=== PATIENT | female | born 1980 | race Caucasian/White ===

== ENCOUNTER → 2024-09-07 | Outpatient (CLI) | payer MEDICARE, MEDICAID, SELFPAY ==
--- NOTE | 2024-09-07 09:30 | XR_ITS ---
Examination: Breast ultrasound complete, bilateral Date and time of exam: September 07, 2024 1029 hours INDICATIONS: Bilateral breast pain months, family history breast cancer, mother Technique: Real-time grayscale ultrasonographic imaging bilateral breasts, including all 4 quadrants as well as nipple retroareolar and axillary regions. Findings: Sonographic images right breast Multiple benign cysts 6:00 nodule lobular margins 10 x 8 mm 9:00 nodule indistinct margins 25 x 15 x 11 mm Sonographic images left breast Benign cyst No suspicious solid nodule IMPRESSION: BI-RADS Category 4: Suspicious for malignancy Suspicious nodule 9:00 position right breast, biopsy is needed to exclude breast carcinoma, this nodule is amenable to ultrasound-guided breast biopsy for diagnosis Also recommend diagnostic mammography follow-up
--- NOTE | 2024-09-07 10:45 | XR_ITS ---
Examination: Diagnostic digital mammography, bilateral Computer aided detection 3-D breast Tomosynthesis, bilateral Date and time of exam: September 07, 2024 1105 hours Compared to mammograms dating to July 24, 2018 Technique: Nonmagnified MLO, CC views of the breasts to been obtained, reconstructed from 3-D Tomosynthesis images. R2 computer aided detection program utilized for evaluation of suspicious masses and/or abnormal calcifications. 3-D Tomosynthesis images obtained. Findings: The breasts are heterogeneously dense, which may obscure small masses Benign calcifications Breast biopsy marker upper right breast However, please see the right breast sonogram report today indicating BI-RADS 4 suspicious nodule 9:00 position right breast Impression: BI-RADS Category 4: Suspicious for malignancy Please see the right breast sonogram report today indicating BI-RADS 4 suspicious nodule 9:00 position right breast, biopsy needed to exclude breast carcinoma, under ultrasound guidance.
== END | disposition home or self-care (01) ==
PROVIDERS: Referring Provider Physician Assistant; Visit Provider Physician Assistant
DX: R92.343 Mammographic extreme density, bilateral breasts (principal); N63.15 Unspecified lump in the right breast, overlapping quadrants
CPT/HCPCS: 76641; 77062; 77066; G0279

== ENCOUNTER → 2024-12-17 | Outpatient (CLI) | payer MEDICARE, MEDICAID, SELFPAY ==
[2024-12-14 11:21] LABS: Basophils # (Auto) 0.0 Thou/mm3 (0.0-0.2); Basophils % (Auto) 0 % (0-2.5); Eosinophils # (Auto) 0.3 Thou/mm3 (0.0-0.5); Eosinophils % (Auto) 3 % (0-10); Hematocrit 38.7 % (36.0-46.0); Hemoglobin 13.0 g/dL (12.0-16.0); Immature Granulocytes Auto 0.03 Thou/mm3 (0.00-0.00); Lymphocytes # (Auto) 2.5 Thou/mm3 (1.0-4.8); Lymphocytes % (Auto) 28 % (10-50); Mean Corpuscular HGB Conc 33.6 g/dl (31.0-37.0); Mean Corpuscular Hemoglobin 30.7 pg (25.0-35.0); Mean Corpuscular Volume 91 fL (80-100); Monocytes # (Auto) 0.4 Thou/mm3 (0.0-0.8); Monocytes % (Auto) 4 % (0-12); Neutrophils # (Auto) 5.9 Thou/mm3 (1.8-7.7); Neutrophils % (Auto) 64 % (37-80); Nucleated Red Blood Cell # 0.00 Thou/mm3 (0.00-0.00); Nucleated Red Blood Cell % 0 /100 WBC (0); Platelet Count 348 Thou/mm3 (140-440); RDW Standard Deviation 43.8 fL (36.4-46.3); Red Blood Count 4.24 Miln/mm3 (4.00-5.20); White Blood Count 9.1 Thou/mm3 (3.6-11.0)
[2024-12-14 11:26] LABS: HCG,Qualitative Serum Negative
[2024-12-14 11:30] LABS: INR 0.9 (0.9-1.3); Partial Thromboplastin Time 29.3 Seconds (22.0-36.0); Prothrombin Time 10.3 Seconds (9.0-12.2)
--- NOTE | 2024-12-17 09:30 | XR_ITS ---
Examinations: Ultrasound-guided percutaneous breast biopsy, right breast 9:00 nodule Right breast sonography limited INDICATIONS: Right breast sonogram September 08, 2023 BI-RADS 4 suspicious nodule 9:00 position right breast. Exam date and time: December 17, 2024, 0936 hours. Informed consent provided. Technique: A timeout was completed verifying correct patient, procedure, site, positioning, and special equipment if applicable Informed consent provided. The patient was placed in a supine position for the breast biopsy. Sonographic images of the breast were performed for localization of the suspicious nodule The patient's breast was prepped and draped in sterile fashion. Maximum sterile barrier technique, hand hygiene, ultrasound sterile technique 1% lidocaine was used to anesthetize the skin and breast adjacent to the suspicious nodule. Utilizing ultrasonographic guidance, 8 core biopsies were obtained of the suspicious nodule utilizing an 18-gauge BioPince needle. The specimens appears satisfactory. US guided breast biopsy marker placement. Estimated blood loss 3 cc. The patient tolerated the procedure well and there were no complications. Impression: Successful ultrasound-guided percutaneous breast biopsy, right breast 9:00 nodule. Ultrasound guided breast biopsy marker placement.
== END | disposition home or self-care (01) ==
LOC: SDIM 08:49
PROVIDERS: Radiology Diagnostic Radiology; PCP Physician Assistant; Referring Provider Physician Assistant; Visit Provider Physician Assistant
DX: D24.1 Benign neoplasm of right breast (principal); N60.11 Diffuse cystic mastopathy of right breast; Z01.812 Encounter for preprocedural laboratory examination
CPT/HCPCS: 19083; 36415; 84703; 85025; 85610; 85730; A4648

== ENCOUNTER 2025-01-30 12:39 | Emergency (ER) | payer MEDICARE, MEDICAID, SELFPAY ==
[2025-01-30 12:40] VITALS: BMI 47.1
--- NOTE | 2025-01-30 13:22 | XR_ITS ---
Examination: CT brain head without contrast. 2-D sagittal coronal reconstructions Date and time of exam: January 30, 2025, 1418 hours INDICATIONS: Onset headache dizziness beginning 1 week ago CTDI: vol (mGy): 50.4 DLP: (mGycm): 1030 Technique: Multiple CT axial sections of the brain have been obtained, 5 mm slice thickness. Contrast has not been administered. 2-D sagittal, coronal reconstructions have been obtained Low dose protocols were performed. One or more of the following dose reduction techniques were used; automated exposure control, adjustment of the mA and/or KV according to patient size, use of iterative reconstruction technique. Findings: No significant ventricular enlargement. Intra-axial or extra-axial hemorrhage density is not seen. No mass effect or midline shift Basal cisterns are not remarkable. Fourth ventricle is midline. Cranial vault intact. Impression: Negative for acute hemorrhage, mass effect or midline shift Advise clinical correlation and follow-up accordingly
[2025-01-30 13:23] VITALS: BP 168/105; PULSE 82; RESP 20; TEMP 36.8; O2SAT 97
--- NOTE | 2025-01-30 13:23 | XR_ITS ---
EXAMINATION: PA lateral chest 2 views TECHNIQUE: Upright PA lateral chest 2 views Date and time: January 30, 2025, 1421 hours, comparison December 28, 2017 INDICATION: Chest pain today. FINDINGS: Normal heart size No pneumonia or pulmonary edema Osseous structures are intact IMPRESSION: No active disease
--- NOTE | 2025-01-30 13:23 | EKG_ITS ---
[facility] Test Date: 2025-01-30 Pat Name: MARICHUY FERMIN Department: Room: - Gender: Female [employer]: : 1980 Requested By: Landen Aquino (CIPRIANO) Order Number: [id number] Reading MD: Landen Aquino (SAMPLE DYE MIXER) Measurements Intervals Leary Rate: 91 P: 35 MN: 149 QRS: 26 QRSD: 80 T: 40 QT: 354 QTc: 436 Interpretive Statements SINUS RHYTHM LOW QRS VOLTAGE IN PRECORDIAL LEADS [QRS DEFLECTION < 1.0 mV IN CHEST LEADS] No previous ECG available for comparison /store/S0/[id number].pdf
--- NOTE | 2025-01-30 13:23 | PD.EDRME ---
Rapid Medical Screening Exam RME Arrival date/time: 01/30/25 12:39 44-year-old female presents to the emergency department today for complaints of headache and chest pain today Chief Complaint: Chest Pain Time Seen by Provider: 01/30/25 13:15 Vital signs reviewed by provider: Yes Exam: On exam clinically patient well-appearing does not appear ill or toxic no acute distress Clinical Impression: Lab work, imaging, EKG obtained
[2025-01-30 13:47] LABS: Basophils # (Auto) 0.0 Thou/mm3 (0.0-0.2); Basophils % (Auto) 0 % (0-2.5); Eosinophils # (Auto) 0.2 Thou/mm3 (0.0-0.5); Eosinophils % (Auto) 2 % (0-10); Hematocrit 33.7 % (36.0-46.0); Hemoglobin 11.4 g/dL (12.0-16.0); Immature Granulocytes Auto 0.01 Thou/mm3 (0.00-0.00); Lymphocytes # (Auto) 2.1 Thou/mm3 (1.0-4.8); Lymphocytes % (Auto) 29 % (10-50); Mean Corpuscular HGB Conc 33.8 g/dl (31.0-37.0); Mean Corpuscular Hemoglobin 29.8 pg (25.0-35.0); Mean Corpuscular Volume 88 fL (80-100); Monocytes # (Auto) 0.3 Thou/mm3 (0.0-0.8); Monocytes % (Auto) 5 % (0-12); Neutrophils # (Auto) 4.5 Thou/mm3 (1.8-7.7); Neutrophils % (Auto) 63 % (37-80); Nucleated Red Blood Cell # 0.00 Thou/mm3 (0.00-0.00); Nucleated Red Blood Cell % 0 /100 WBC (0); Platelet Count 229 Thou/mm3 (140-440); RDW Standard Deviation 42.1 fL (36.4-46.3); Red Blood Count 3.83 Miln/mm3 (4.00-5.20); White Blood Count 7.1 Thou/mm3 (3.6-11.0)
[2025-01-30 14:00] LABS: INR 1.0 (0.9-1.3); Partial Thromboplastin Time 29.6 Seconds (22.0-36.0); Prothrombin Time 10.9 Seconds (9.0-12.2)
[2025-01-30 14:04] LABS: B-Type Natriuretic Peptide 290 pg/mL (0-100)
[2025-01-30 14:05] LABS: Alanine Aminotransferase 23 U/L (10-49); Albumin, Serum 4.6 gm/dL (3.5-5.0); Albumin/Globulin Ratio 1.8 (1.2-2.2); Alkaline Phosphatase 100 U/L (46-116); Anion Gap 8 (7-16); Aspartate Amino Transferase 16 U/L (0-34); BUN/Creatinine Ratio 9 Ratio (12-20); Bilirubin,Total 0.3 mg/dL (0.3-1.2); Blood Urea Nitrogen 9 mg/dL (9-23); Calcium 9.6 mg/dL (8.3-10.6); Calcium (Corrected) 9.6 mg/dL (8.5-10.1); Carbon Dioxide 24.1 mMol/L (20.0-31.0); Chloride 108 mMol/L (98-107); Creatinine (Component) 1.0 mg/dL (0.6-1.3); Estimated Creatinine Clearance 88.4 mL/min (>60); Globulin 2.5 gm/dL (2.3-3.5); Glucose 89 mg/dL (74-106); Magnesium 1.7 mg/dL (1.6-2.6); Osmolality,Calculated 277 (275-295); Potassium 4.4 mMol/L (3.4-5.1); Sodium 140 mMol/L (136-145); Total Protein 7.1 gm/dL (5.7-8.2); Troponin I 0.035 ng/mL (0.0-0.045); eGFR > 60 See Note
[2025-01-30 14:23] LABS: Collection Type, Urine Clean Catch
[2025-01-30 14:32] LABS: Bilirubin,Urine Negative (Negative); Blood,Urine Trace (Negative); Clarity,Urine Turbid (Clear/Hazy); Color,Urine Lt-Yellow (Lt Yel-Yel); Culture Indicated,Urine Not Indicated; Glucose, Urine Negative (Negative); Ketones,Urine Negative (Negative); Leukocyte Esterase,Urine Negative (Negative); Nitrite,Urine Negative (Negative); PH,Urine 5.5 (5.0-7.0); Protein,Urine Negative (Neg - Trace); RBC,Urine 1 /hpf (0-3); Specific Gravity,Urine 1.014 (1.001-1.035); Squamous Epithelial Cell,Urine 3 /hpf (0-5); Urobilinogen,Urine Negative mg/dL (0.0-1.0); WBC,Urine 1 /hpf (0-5)
[2025-01-30 14:34] LABS: HCG Qualitative,Urine Negative
[2025-01-30 15:24] LABS: Amphetamine/Methamp Scrn,U Negative (Negative); Barbiturate Screen,Urine Negative (Negative); Benzodiazepines Screen,Urine Negative (Negative); Benzoylecgonine Screen, Ur Negative (Negative); Fentanyl Screen,Urine Negative (Negative); Opiate Screen,Urine Negative (Negative); THC Screen,Urine Negative (Negative)
--- NOTE | 2025-01-30 16:05 | EDNOTE_ITS ---
ED Chest Pain RME/HPI General Chief Complaint: Chest Pain Stated Complaint: CHEST PAIN X1 WEEK Time Seen by Provider: 01/30/25 13:15 Arrival date/time: 01/30/25 12:39 RME / HPI RME / HPI narrative: 01/30/25 12:39 44-year-old female presents to the emergency department today for complaints of headache and chest pain today DR. LUNDY MAIN ED EVALUATION, 1600h: 44 year old female with history of hypertension, asthma, active tobacco smoker (5 cigarettes a day) presents to the ED for chest pain x 1 week. Pain described as pressure in sensation with occasional stabbing pain that is located most to the center of chest with radiation up to her left jaw and left arm. Pain rated as moderate. States duration of pain varies from a few minutes to 1 hour. Since arriving to the ED, the pain comes and goes with the most recent episode lasting 10 minutes. Accompanied by exertional dyspnea, cough with on/off wheezing, and on/off dizziness (worse after exertion) beginning ~ 1 month ago. No history of similar pain or symptoms. No prior stress test performed. Denies nasal congestion, fevers, chills, abdominal pain, n/v/d, or urinary symptoms. Nebulizer and inhaler have not provided relief at home. Exam: On exam clinically patient well-appearing does not appear ill or toxic no acute distress Impression: Lab work, imaging, EKG obtained Related Data Previous Rx's ?Medication ?Instructions ?Recorded albuterol sulfate 2.5 mg/3 mL 2.5 mg (3 mL) inhalation Q4H PRN 01/30/25 (0.083 %) solution for nebulization shortness of breat h or wheezing #90 mL Allergies Allergy/AdvReac Type Severity Reaction Status Date / Time sumatriptan (From Imitrex) Allergy Anxiety Verified 01/30/25 12:44 Review of Systems Review of Systems Systems Reviewed: All systems reviewed, normal except as documented Past Medical History Past Medical History CARDIAC: Positive Hypertension RESPIRATORY: Positive Asthma Social History SMOKING STATUS: Light (< 1 pack/day) ED Exam Narrative Physical exam: Constitutional: Awake, alert, nontoxic, appears uncomfortable, somewhat tearful HEENT: Normocephalic, atraumatic, extraocular movements intact. Neck: Supple CV: Regular rate and rhythm, no murmurs/rubs/gallops Lungs: Clear to auscultation BL, no respiratory distress. Abd: Soft, NT, ND, no HSM noted to palpation Extremities: No deformities, tenderness to the left calf, chronic venous stasis changes to the left lower extremity Neuro: AAOx3, CN 2-12 GIBL, no acute neuro deficit noted. Skin: Warm, dry, intact Course Quality Measures none Orders Category Date Time Status CT Screening NOW Care 01/30/25 16:40 Completed EKG (ED ONLY) *Do not use* NOW Care 01/30/25 13:23 Completed Saline [Insert IV] NOW Care 01/30/25 18:[address] angio chest Stat Exams 01/30/25 16:[address] head/brain wo con Stat Exams 01/30/25 13:22 Completed EKG (ED Only) Stat Exams 01/30/25 13:23 Draft XR chest 2V Stat Exams 01/30/25 13:23 Completed B-Type Natriuretic Peptide Stat Lab 01/30/25 13:36 Completed CBC Stat Lab 01/30/25 13:36 Completed Comprehensive Metabolic Panel Stat Lab 01/30/25 13:36 Completed Drug Screen,Urine Stat Lab 01/30/25 14:15 Completed HCG Qualitative,Urine Stat Lab 01/30/25 14:15 Completed Magnesium Stat Lab 01/30/25 13:36 Completed Partial Thromboplastin Time Stat Lab 01/30/25 13:36 Completed Prothrombin Time with INR Stat Lab 01/30/25 13:36 Completed Troponin I Stat Lab 01/30/25 13:36 Completed Troponin I Stat Lab 01/30/25 17:00 Completed Urinalysis, C/S if Indicated Stat Lab 01/30/25 14:15 Completed Albuterol/Ipratr Rt Zakia [Duoneb Rt Zakia] Med 01/30/25 21:16 Discontinued 3 ml INH X1 ONE Azithromycin Po [Zithromax PO] Med 01/30/25 21:16 Discontinued 500 mg PO X1 ONE predniSONE Med 01/30/25 21:16 Discontinued 60 mg PO X1 ONE Vital Signs Vital signs: Vital Signs Temperature 98.2 F 01/30/25 13:23 Pulse Rate 82 01/30/25 13:23 Respiratory Rate 20 01/30/25 13:23 Blood Pressure 168/105 H 01/30/25 13:23 Pulse Oximetry (%) 97 01/30/25 13:23 Oxygen Delivery Method Room Air 01/30/25 13:23 Pulse ox is 97% on room air which is adequate. Chest Pain MDM Narrative MDM Narrative:: Smitha Aponte am scribing for and in the presence of Dr. Lundy. Patient data External records reviewed:: [facility] previous records Clinical information provided by:: patient Social determinants that could affect healthcare access:: other (specify) (active tobacco smoker ) Patient has the following chronic illnesses:: HTN, asthma How is presenting disease/condition affected by chronic disease/condition?: exacerbated by Evaluation data The following diagnostics were reviewed and interpreted by me:: lab results, radiology exam(s) and EKG tracing(s) (EKG @ 13:23h, interpreted by me, sinus rhythm, rate 91, no STEMI. ) Lab and/or radiology exams considered but not ordered:: None Interpretation Summary: Ordering Physician: Landen Aquino NP, NP Date of Service: 01/30/25 Procedure(s): CT head/brain wo [facility] Accession Number(s): [id number] cc: Kenia ONTIVEROS),Landen COTA; Minnie Vazquez PA-C; Luis Barrett MD~ Examination: CT brain head without contrast. 2-D sagittal coronal reconstructions Date and time of exam: January 30, 2025, 1418 hours INDICATIONS: Onset headache dizziness beginning 1 week ago CTDI: vol (mGy): 50.4 DLP: (mGycm): 1030 Technique: Multiple CT axial sections of the brain have been obtained, 5 mm slice thickness. Contrast has not been administered. 2-D sagittal, coronal reconstructions have been obtained Low dose protocols were performed. One or more of the following dose reduction techniques were used; automated exposure control, adjustment of the mA and/or KV according to patient size, use of iterative reconstruction technique. Findings: No significant ventricular enlargement. Intra-axial or extra-axial hemorrhage density is not seen. No mass effect or midline shift Basal cisterns are not remarkable. Fourth ventricle is midline. Cranial vault intact. Impression: Negative for acute hemorrhage, mass effect or midline shift Advise clinical correlation and follow-up accordingly Dictated By: Luis Barrett MD Signed By: <Electronically signed by Luis Barrett MD in OV> 01/30/25 1449 ===== Ordering Physician: Kenia ONTIVEROS),Landen COTA Date of Service: 01/30/25 Procedure(s): XR chest 2V Accession Number(s): [id number] cc: Kenia ONTIVEROS),Landen COTA; Minnie Vazquez PA-C; Lius Barrett MD~ EXAMINATION: PA lateral chest 2 views TECHNIQUE: Upright PA lateral chest 2 views Date and time: January 30, 2025, 1421 hours, comparison December 28, 2017 INDICATION: Chest pain today. FINDINGS: Normal heart size No pneumonia or pulmonary edema Osseous structures are intact IMPRESSION: No active disease Dictated By: Luis Barrett MD Signed By: <Electronically signed by Luis Barrett MD in OV> 01/30/25 1436 Medications / Prescriptions Medications or Prescriptions considered but not ordered:: None Medication administrations:: Medication Administration History Discontinued Medications Albuterol/Ipratropium (Albuterol/Ipratropium (Duoneb) Rt Zakia 3 Ml Nebu) 3 ml INH X1 ONE Stop: 01/30/25 21:17 Last Admin: 01/30/25 21:30 Dose: 3 ml Documented By: SAMANTHA Azithromycin (Azithromycin 250 Mg Tablet) 500 mg PO X1 ONE Stop: 01/30/25 21:17 Last Admin: 01/30/25 21:37 Dose: 500 mg Documented By: HUGH Prednisone (Prednisone 20 Mg Tablet) 60 mg PO X1 ONE Stop: 01/30/25 21:17 Last Admin: 01/30/25 21:37 Dose: 60 mg Documented By: BD None Consultations Consultation(s) initiated? (list below): No Diagnosis Most likely diagnosis given after review of the tests above:: Chest pain Shortness of breath Admission Indicated Admission indicated?: not indicated Explain why admission is indicated or not indicated:: Signed out pending final disposition. Admission Request Was there a request for admission?: No Disposition Plan Disposition Plan: other (specify) (Signed out to Dr. Lipscomb pending CT angio chest and final disposition. ) Discharge Plan Plan Patient Disposition: HOME (Self Care) Prescriptions/Referrals Prescriptions/Med Rec: New albuterol sulfate 2.5 mg /3 mL (0.083 %) solution for nebulization 2.5 mg inhalation Q4H PRN (Reason: shortness of breath or wheezing) Qty: 90 0RF Referrals: Minnie Vazquez PA-C [Primary Care Provider] - In 1 week Problem List Clinical Impression: Asthma exacerbation, Respiratory infection Patient/Caregiver Discharge Instructions Discharge Activity: activity as tolerated Education Materials: ED Asthma, Acute (Adult), ED Bronchitis, Antibiotics (Child) Additional Instructions: Discharge instructions from Dr. Lipscomb: --After extensive evaluation, there is no life-threatening condition.? Such as heart attack or pulmonary embolism (blood clots in your lungs) or pneumothorax (collapsed lung). Your symptoms are due to asthma attack and respiratory infection. --No physical exertion for 3 days to help rest the lungs. ?No smoking or exposure to smoking or pets or dust or cold or humidity. --Zithromax to kill the germs causing the asthmatic bronchitis. --Prednisone to help decrease the swelling in the airways. --Albuterol 2 puffs or albuterol neb treatment every 4-6 hours for 3 days to help keep the airways open. Then as needed for cough or shortness of breath. --See a private doctor next week. Ask to review all test results and official radiology reports, to make sure you receive all necessary follow-ups and monitoring. --Seek immediate medical care with worsening or with any concerns. Print Language: Tuvaluan Stand Alone Forms: [employer] Award Info., Patient Portal Info Letter
--- NOTE | 2025-01-30 16:40 | XR_ITS ---
Examination: CTA chest with intravenous contrast 2-D reconstructions 3-D reconstructions, vascular Date and time of exam: January 30, 2025, 23 9 hours INDICATIONS: Shortness of breath chest pain beginning 1 week ago CTDI: vol (mGy) 13.0 DLP: (mGycm) 497 Technique: Multiple axial sections of the thorax have been obtained. 3 mm slice thickness, from below the hemidiaphragms to above the apices of the lungs. Mediastinal and lung density settings have been obtained. 2-D sagittal and coronal reconstructions. 3-D angiographic renderings, 3-D volume renderings, 3D post processing, vascular maximum intensity projections obtained. Contrast administered is 100 cc Isovue-[id number]. Intravenous Low dose protocols were performed. One or more of the following dose reduction techniques were used; automated exposure control, adjustment of the mA and/or KV according to patient size, use of iterative reconstruction technique. Findings: 13 mm right tracheobronchial lymph node Subcentimeter pretracheal lymph nodes No thoracic aortic aneurysm dilatation or dissection No pulmonary artery emboli 2 mm pulmonary nodule left upper lobe image 106 No pneumonia or pulmonary edema Liver is mildly irregular in contour and enlarged, but incompletely visualized Gallstones contracted gallbladder No pancreatic or adrenal mass Aorta normal size IMPRESSION: 13 mm right tracheobronchial lymph node, subcentimeter pretracheal lymph nodes, 2 mm pulmonary nodule left upper lobe, with the studies baseline recommend 6-month follow-up CT chest without contrast to document stability of mediastinal lymphadenopathy and document stability of the pulmonary nodule in the left lung No interval pneumonia or pulmonary edema Negative for pulmonary artery emboli No lobar pneumonia or pulmonary edema
[2025-01-30 17:36] LABS: Troponin I 0.044 ng/mL (0.0-0.045)
--- NOTE | 2025-01-30 18:24 | PD.EDADDENDU ---
Emergency Room Addendum Addendum Narrative: I took over the care from previous shift physician at 6 PM on 01/30/2025. See previous notes for complete H & P and ED course. I reviewed all diagnostic test results. My interpretation of the EKG is sinus rhythm. My interpretation of the chest x-ray is NAD. My review of the Head/Brain CT report is no acute findings. My review of the Chest CTA report is no PE. Blood tests and urine tests unremarkable. My exam significant for bronchospasm. Diagnoses include: Asthma Exacerbation Respiratory Infection Treatment here included Duoneb Zithromax 500 mg PO Prednisone 60 mg PO Significant improvement noted. Recommended outpatient treatment. Based on my best medical judgment, made decision no further evaluation or treatment indicated at this time. Patient understands and agrees to the discharge instructions customized and printed, see below. Discharge instructions from Dr. Lipscomb: --After extensive evaluation, there is no life-threatening condition. Such as heart attack or pulmonary embolism (blood clots in your lungs) or pneumothorax (collapsed lung). Your symptoms are due to asthma attack and respiratory infection. --No physical exertion for 3 days to help rest the lungs. ?No smoking or exposure to smoking or pets or dust or cold or humidity. --Zithromax to kill the germs causing the asthmatic bronchitis. --Prednisone to help decrease the swelling in the airways. --Albuterol 2 puffs or albuterol neb treatment every 4-6 hours for 3 days to help keep the airways open. Then as needed for cough or shortness of breath. --See a private doctor next week for recheck. Ask to review all diagnostic tests from today, to make sure you receive all necessary followups. --Seek immediate medical care with worsening or with any concerns. Reo Lipscomb MD
[2025-01-30 19:49] VITALS: BP 148/109; BP 168/115; PULSE 98; RESP 20; TEMP 36.5; O2SAT 95
[2025-01-30] MEDS: ALBUTEROL/IPRATROPIUM (Duoneb) RT SOL 3 ML NEBU INH (21:30)
[2025-01-30 21:31] VITALS: PULSE 84; RESP 20; O2SAT 96
[2025-01-30 21:35] VITALS: BP 124/71; PULSE 86; RESP 20; TEMP 36.4; O2SAT 98
[2025-01-30] MEDS: AZITHROMYCIN 250 MG TABLET 500 MG PO (21:37)
== END 2025-01-30 21:42 | disposition home or self-care (01) ==
PROVIDERS: Family Medicine; Nurse Practitioner Primary Care; Emergency Provider Emergency Medicine; PCP Physician Assistant
DX: J45.901 Unspecified asthma with (acute) exacerbation (principal); I10 Essential (primary) hypertension; F17.210 Nicotine dependence, cigarettes, uncomplicated
CPT/HCPCS: 36415; 70450; 71046; 71275; 80053; 80307; 81001; 81025; 83735; 83880; 84484; 85025; 85610; 85730; 93005; 94640; 99284; A4649; A9270; J7512; Q9967